=== PATIENT | male | born 1990 | race Hispanic/Latino ===

== ENCOUNTER 2020-10-06 19:15 | Observation (INO) | payer OTHER, SELFPAY ==
[2020-10-06] VITALS (7 sets, daily range): BP systolic 119–136; BP diastolic 73–81; PULSE 50–56; RESP 14–21; TEMP 37–37.3; O2SAT 99–100; BMI 23.5
[2020-10-06 19:33] LABS: Add Manual Diff / Slide Review NO; Basophils Absolute Auto 0 /uL (0-100); Basophils Percent Auto 0.2 % (0-2); Eosinophils Absolute Auto 0 /uL (0-450); Hematocrit 45.1 % (41-53); Lymphocytes Absolute Auto 1100 /uL (1100-4500); Lymphocytes Percent Auto 5.1 % (25-40); Mean Corpuscular HGB Conc 33.3 % (30-36); Mean Corpuscular Hemoglobin 30.6 PG (26-34); Mean Corpuscular Volume 91.9 fL (80-100); Monocytes Absolute Auto 600 /uL (0-900); Monocytes Percent Auto 2.7 % (3-14); Neutrophils Absolute Auto 19300 /uL (1500-7000); Platelet Count 184 X10^3/uL (150-400); Red Cell Distribution Width 12.9 % (11.6-14.8)
[2020-10-06 19:46] LABS: INR 1.2 (0.9-1.3); Prothrombin Time 13.5 SECONDS (10.1-12.7)
[2020-10-06 19:49] LABS: PTT Partial Thromboplastin Tim 30 SECONDS (26.4-36.2)
[2020-10-06 20:11] LABS: Alanine Aminotransferase 20 IU/L (<50); Albumin 4.8 g/dL (3.5-5.0); Albumin Globulin Ratio 1.6 (1.0-2.8); Alkaline Phosphatase 45 U/L (38-126); Aspartate Aminotransferase 29 IU/L (17-59); Bilirubin Total 0.9 mg/dL (0.2-1.3); Blood Urea Nitrogen 15 mg/dL (9-20); Calcium 9.6 mg/dL (8.4-10.2); Carbon Dioxide 25 mmol/L (22-32); Chloride 101 mmol/L (98-107); Estimated Glomerular Filt Rate > 60.0 mL/min (>60); Glucose 133 mg/dL (70-100); HEMOLYSIS < 15 (0-50); Lipase 74 U/L (23-300); Potassium 3.6 mmol/L (3.4-5.1); Sodium 136 mmol/L (137-145); Total Protein 7.8 g/dL (6.3-8.2)
--- NOTE | 2020-10-06 20:15 | DI.CT.S_ITS ---
PROCEDURE: CT ABDOMEN PELVIS W CON INDICATIONS: R/O appendicitis TECHNIQUE: After the administration of intravenous contrast, 5 mm thick sections acquired from the diaphragm to the symphysis. 5 mm coronal and sagittal reformats were acquired. For radiation dose reduction, the following was used: automated exposure control, adjustment of mA and/or kV according to patient size. COMPARISON: None. FINDINGS: Image quality: Excellent. ABDOMEN: Lung bases: There is mild dependent atelectasis bilaterally. Heart size is normal. Solid organs: There is a small nonspecific focal hypodensity in the right hepatic lobe which is too small to characterize but likely represents a cyst. The gallbladder appears within normal limits without calcified gallstones. Biliary system is non-dilated. Pancreas enhances normally. No peripancreatic fat stranding or fluid collections. No pancreatic duct dilatation. The spleen is normal in size. No adrenal nodules. Kidneys demonstrate no hydronephrosis. Peritoneum and bowel: Bowel loops demonstrate normal wall thickness and caliber. The appendix is distended, measuring up to 1.0 cm with mild wall thickening and periappendiceal fat stranding consistent with acute appendicitis. No free fluid or air. No loculated fluid collections to suggest and abscess. There is colonic diverticulosis without acute diverticulitis. Nodes and vessels: No retroperitoneal or mesenteric adenopathy by size criteria. Aorta and inferior vena cava are normal in size. Miscellaneous: No ventral hernias. PELVIS: Genitourinary: Bladder wall thickness is normal. Miscellaneous: No inguinal hernias or adenopathy. Bones: No suspicious bony lesions. No vertebral body compression fractures. IMPRESSION: 1. Acute appendicitis without definite evidence of perforation. 2. Findings discussed with Dr. Biswas on 10/06/2020 at 8:57 p.m.. Dictated by: Maicol Sun M.D. on 10/06/2020 at 20:54 Approved by: Maicol Sun M.D. on 10/06/2020 at 21:01
--- NOTE | 2020-10-06 20:15 | ED.ABDPAIN ---
HPI - Abdominal Pain General Chief Complaint: Abdominal Pain Stated Complaint: stomach pains, N/V/D Time Seen by Provider: 10/06/20 20:10 Source: patient Mode of arrival: Ambulatory Limitations: no limitations History of Present Illness HPI narrative: The patient developed right lower quadrant pain about noon today. Pain is escalated. The pain does not radiate. He he has vomited, no diarrhea. Oral intake is decreased. He has no fever. He has no back pain. He has no genitalia pain, and no dysuria. He has no complaints of headache, sore throat, cough or dyspnea. He denies chronic illnesses. He is on no regular medications. He has no surgical history. Related Data Allergies Allergy/AdvReac Type Severity Reaction Status Date / Time acetaminophen [ACETAMINOPHEN] Allergy Intermediate Rash Verified 10/06/20 22:26 Review of Systems Constitutional Constitutional: Reports anorexia, Denies chills, Denies fever(s) and Denies headache(s) Eyes Eyes: Denies change in vision ENT Ears, Nose, Mouth, and Throat: Denies dizziness, Denies headache(s) and Denies sore throat Comments: No change in taste or smell. Cardiovascular Cardiovascular: Denies chest pain, Denies irregular heart rhythm, Denies lightheadedness and Denies dyspnea Respiratory Respiratory: Denies cough and Denies dyspnea Gastrointestinal Gastrointestinal: Reports as per HPI and Reports abdominal pain Genitourinary Genitourinary: Denies dysuria Genitourinary: Denies dysuria Comments: No genital pain Musculoskeletal Musculoskeletal: Denies back pain Integumentary/Breasts Skin/Breast: Denies rash Comments: No skin lesions Neurologic Neurologic: Denies dizziness and Denies headache(s) Psychiatric Psychiatric: Denies anxiety Patient History Medical History Healthy adult Surgical History No significant past surgical history Family History (Updated 10/06/20 @ 22:26 by Jules Geronimo MD) Mother Cancer Social History household members: spouse and children Smoking Status: Current some day smoker Smoking Status: Current some day smoker alcohol intake frequency: a few times a month Substance Use Type: does not use Exam Initial Vital Signs Initial Vital Signs: Vital Signs Temperature 99.2 F 10/06/20 19:18 Pulse Rate 56 L 10/06/20 19:18 Respiratory Rate 14 10/06/20 19:18 Blood Pressure 136/73 10/06/20 19:18 Pulse Oximetry 100 10/06/20 19:18 Const General: cooperative, well developed and acute distress Nutritional Appearance: well nourished Eyes Other: No icterus Resp Auscultation: clear to auscultation bilaterally Cardio Rate: regular rate Rhythm: regular rhythm Heart Sounds: S1 normal, S2 normal, no click, no gallops, no murmurs and no rubs Pulses: normal peripheral pulses GI Other: Focal tenderness in the right lower quadrant with guarding, no rebound. Positive heel tap. No distension. No masses. Normal bowel sounds. Back/Spine/Pelvis Back: No CVA tenderness Skin General: no rashes or lesions noted and No jaundice Neuro General: patient alert, patient oriented x3, gait normal and no focal motor deficits Speech: speech normal Extrem General: no pedal edema and no calf tenderness Psych Appearance: grossly normal and well kempt Course Course Course Narrative: Clinical findings were concerning for acute appendicitis. CT was consistent with acute appendicitis. Surgery, Dr. Geronimo was consulted. The patient was started on Rocephin and Flagyl for appendicitis. He was evaluated in the ER by Dr. Geronimo. He will be managed with antibiotics this evening. Dr. Geronimo will give the patient the option to be managed with antibiotics only, he will re-evaluate the patient in the morning. The patient is admitted. Orders Ordered: ED Orders 10/06/20 19:22 EKG-12 Lead Stat 10/06/20 19:25 Complete Blood Count AUTO DIFF Stat Comprehensive Metabolic Panel Stat Lipase Stat Partial Thromboplastin Time Stat Prothrombin Time INR Stat 10/06/20 20:15 CT abdomen pelvis w con Stat 10/06/20 21:00 COVID19 - ADMIT (SUPERVISING CHEF swab/PCR) Stat Enoxaparin Sodium (Enoxaparin 40 Mg/0.4 Ml Syringe) 40 mg SUBCUT NOW ONE Stop: 10/06/20 22:25 Gabapentin (Gabapentin 300 Mg Capsule) 300 mg PO BID CAITLIN Hydromorphone HCl (Hydromorphone 1 Mg Inj) 1 mg IV 2300 PRN PRN Reason: Pain, Moderate (4-6) Lactated Ringer's (Lactated Ringers) 1,000 mls @ 125 mls/hr IV CONT CAITLIN Metronidazole (Flagyl) 500 mg in 100 mls @ 100 mls/hr IV Q6HR CAITLIN Ceftriaxone Sodium/Dextrose (Rocephin) 1 gm in 50 mls @ 100 mls/hr IV Q12H CAITLIN Ketorolac Tromethamine (Ketorolac 30 Mg/Ml Vial) 30 mg IV Q6HR PRN PRN Reason: abdominal pain Stop: 10/11/20 22:15 Ondansetron HCl (Ondansetron 4 Mg/2 Ml Inj) 4 mg IV Q4HR PRN PRN Reason: Nausea And Vomiting Discontinued Medications Sodium Chloride (Normal Saline 0.9%) 1,000 mls @ 1,000 mls/hr IV BOLUS ONE Stop: 10/06/20 21:13 Last Infusion: 10/06/20 22:03 Dose: 300 mls/hr Documented by: Admin: 10/06/20 20:19 Dose: 1,000 mls/hr Documented by: ELOY Ceftriaxone Sodium/Dextrose (Rocephin) 1 gm in 50 mls @ 100 mls/hr IV NOW ONE Stop: 10/06/20 21:34 Last Infusion: 10/06/20 21:50 Dose: 0 mls/hr Documented by: Admin: 10/06/20 21:23 Dose: 100 mls/hr Documented by: ELOY Metronidazole (Flagyl) 500 mg in 100 mls @ 100 mls/hr IV NOW ONE Stop: 10/06/20 22:04 Last Infusion: 10/06/20 22:02 Dose: 100 mls/hr Documented by: Admin: 10/06/20 21:49 Dose: 100 mls/hr Documented by: ELOY Ketorolac Tromethamine (Ketorolac 60 Mg/2 Ml Vial) 15 mg IV NOW ONE Stop: 10/06/20 20:15 Last Admin: 10/06/20 20:18 Dose: 15 mg Documented by: ELOY Ondansetron HCl (Ondansetron 4 Mg/2 Ml Inj) 4 mg IV NOW ONE Stop: 10/06/20 20:15 Last Admin: 10/06/20 20:18 Dose: 4 mg Documented by: ELOY Vital Signs Vital signs: Vital Signs - 8 hr 10/06/20 19:18 10/06/20 20:15 10/06/20 20:33 Temperature 99.2 F Pulse Rate 56 L 56 L 51 L Respiratory Rate 14 17 18 Blood Pressure 136/73 Pulse Oximetry 100 99 10/06/20 21:00 10/06/20 21:03 10/06/20 21:30 Temperature 99.0 F Pulse Rate 55 L 51 L 50 L Respiratory Rate 21 20 16 Blood Pressure 120/73 119/73 Pulse Oximetry 100 100 99 MDM - Abdominal Pain Lab Data Result diagrams: 10/06/20 19:25 10/06/20 19:25 Labs: Lab Results 10/06/20 10/06/20 10/06/20 Range/Units 19:25 19:25 19:25 WBC 21.0 H (4.5-11.0) X10^3/uL RBC 4.90 (4.5-5.9) X10^6/uL Hgb 15.0 (13.5-17.5) g/dL Hct 45.1 (41-53) % MCV 91.9 (80-100) fL MCH 30.6 (26-34) PG MCHC 33.3 (30-36) % RDW 12.9 (11.6-14.8) % Plt Count 184 (150-400) X10^3/uL Neut % (Auto) 92.0 H (50-75) % Lymph % (Auto) 5.1 L (25-40) % [place] % (Auto) 2.7 L (3-14) % Eos % (Auto) 0.0 L (2-4) % Baso % (Auto) 0.2 (0-2) % Neut # (Auto) 96650 H (8300-8725) /uL Lymph # (Auto) 1100 (0588-7456) /uL [place] # (Auto) 600 (0-900) /uL Eos # (Auto) 0 (0-450) /uL Baso # (Auto) 0 (0-100) /uL PT 13.5 H (10.1-12.7) SECONDS INR 1.2 (0.9-1.3) APTT 30 (26.4-36.2) SECONDS Sodium 136 L (137-145) mmol/L Potassium 3.6 (3.4-5.1) mmol/L Chloride 101 (98-107) mmol/L Carbon Dioxide 25 (22-32) mmol/L BUN 15 (9-20) mg/dL Creatinine 0.75 (0.66-1.25) mg/dL Estimated GFR > 60.0 (>60) mL/min BUN/Creatinine Ratio 20.0 (6-22) Glucose 133 H (70-100) mg/dL Calcium 9.6 (8.4-10.2) mg/dL Total Bilirubin 0.9 (0.2-1.3) mg/dL AST 29 (17-59) IU/L ALT 20 (<50) IU/L Alkaline Phosphatase 45 (38-126) U/L Total Protein 7.8 (6.3-8.2) g/dL Albumin 4.8 (3.5-5.0) g/dL Globulin 3.0 (1.7-4.1) g/dL Albumin/Globulin Ratio 1.6 (1.0-2.8) Lipase 74 (23-300) U/L SARS-CoV-2 (PCR) (Negative) 10/06/20 Range/Units 21:00 WBC (4.5-11.0) X10^3/uL RBC (4.5-5.9) X10^6/uL Hgb (13.5-17.5) g/dL Hct (41-53) % MCV (80-100) fL MCH (26-34) PG MCHC (30-36) % RDW (11.6-14.8) % Plt Count (150-400) X10^3/uL Neut % (Auto) (50-75) % Lymph % (Auto) (25-40) % [place] % (Auto) (3-14) % Eos % (Auto) (2-4) % Baso % (Auto) (0-2) % Neut # (Auto) (3116-2187) /uL Lymph # (Auto) (2966-1034) /uL [place] # (Auto) (0-900) /uL Eos # (Auto) (0-450) /uL Baso # (Auto) (0-100) /uL PT (10.1-12.7) SECONDS INR (0.9-1.3) APTT (26.4-36.2) SECONDS Sodium (137-145) mmol/L Potassium (3.4-5.1) mmol/L Chloride (98-107) mmol/L Carbon Dioxide (22-32) mmol/L BUN (9-20) mg/dL Creatinine (0.66-1.25) mg/dL Estimated GFR (>60) mL/min BUN/Creatinine Ratio (6-22) Glucose (70-100) mg/dL Calcium (8.4-10.2) mg/dL Total Bilirubin (0.2-1.3) mg/dL AST (17-59) IU/L ALT (<50) IU/L Alkaline Phosphatase (38-126) U/L Total Protein (6.3-8.2) g/dL Albumin (3.5-5.0) g/dL Globulin (1.7-4.1) g/dL Albumin/Globulin Ratio (1.0-2.8) Lipase (23-300) U/L SARS-CoV-2 (PCR) Negative (Negative) Imaging Data CT scan - abdomen/pelvis: Radiologist's Impression: Acute appendicitis Critical Care Time Critical Care Time Critical Care Time: Yes Total Critical Care Time: 40 Attestation: Time includes initial assessment patient, review of lab and radiology data, and informing the patient of the clinical findings. Time included consultation with the admitting physician. Discharge Plan Departure Patient Disposition: Admitted as Observation Clinical Impression: Acute appendicitis Admit Date/Time: 10/06/20 21:49 Admit Provider: Jules Geronimo
[2020-10-06] MEDS: KETOROLAC 60 MG/2 ML VIAL 15 MG IV (20:18)
[2020-10-06] MEDS: ONDANSETRON 4 MG/2 ML INJ IV (20:18)
[2020-10-06] MEDS: SODIUM CHLORIDE 0.9% 1,000 ML 1000 ML IV (20:19)
[2020-10-06] MEDS: CEFTRIAXONE 1 GM/50 ML FROZ.PIGGY IV (21:23)
[2020-10-06] MEDS: metroNIDAZOLE 500 MG/100 ML PIGGYBACK 100 MG IV (21:49)
[2020-10-06 22:00] LABS: COVID19 - ADMIT (NP swab/PCR) Negative (Negative)
--- NOTE | 2020-10-06 22:22 | PM.HP.1 ---
History of Present Illness History of Present Illness Date Patient Seen: 10/06/20 Time Patient Seen: 22:23 Chief complaint: stomach pains, N/V/D Narrative: The patient is a gentleman who developed right mid abdominal pain at about 1:00 this afternoon. He has never had pain like this before. The pain is accompanied by nausea and vomiting. Last p.o. intake was around 6:00 p.m. when he drank Gatorade. The pain is made worse with movement. It is particularly severe with palpation. Patient History Medical History Healthy adult Surgical History No significant past surgical history Family & Social History Family History (Updated 10/06/20 @ 22:26 by Jules Geronimo MD) Mother Cancer Safety & Behavioral: Feels Safe in Current Yes Environment Been Physically Hurt or No Threatened By a Person Tobacco & Substance use: Smoking Status Current some day smoker alcohol intake frequency a few times a month Substance Use Type does not use Meds Home Medications and Allergies Allergies Allergy/AdvReac Type Severity Reaction Status Date / Time acetaminophen [ACETAMINOPHEN] Allergy Intermediate Rash Verified 10/06/20 22:26 Review of Systems Review of Systems Narrative: Patient denies double vision pain is eyes earache sore throats tooth aches trouble swallowing. Denies cough cold or asthma. Denies chest pain, murmurs, problems with his heart. Denies black or bloody bowel movements. Is denies dysuria hematuria or kidney stones. Denies seizures or blackouts. No unusual bruising or bleeding. No chronic muscle or joint pain. No new skin lesions or rashes. No anxiety or depression. Exam Vital Signs (past 8 hours): - 10/06/20 19:18 10/06/20 20:15 10/06/20 20:33 Temperature 99.2 F Pulse Rate 56 L 56 L 51 L Respiratory Rate 14 17 18 Blood Pressure 136/73 Pulse Oximetry 100 99 10/06/20 21:00 10/06/20 21:03 10/06/20 21:30 Temperature 99.0 F Pulse Rate 55 L 51 L 50 L Respiratory Rate 21 20 16 Blood Pressure 120/73 119/73 Pulse Oximetry 100 100 99 Oxygen Delivery Method Room Air Narrative Exam Narrative: Cooperative in no distress except with movement. He went is a little. Eyes nonicteric. Pupils equal round reactive to light. Conjunctiva pink. Oral mucosa is pink moist no open lesions. Teeth are intact. There are no nodes in the neck supraclavicular areas. Trachea is midline mobile. Lungs are clear to auscultation. No rales or rhonchi. Equal percussion. Heart regular rate and rhythm without murmur gallop. No heave lift or thrill. Abdomen is scaphoid and soft. He has voluntary guarding in the right lower quadrant with tenderness with mild to moderate palpation. The remainder of his abdomen is soft and nontender. There is no referred pain. Extremities without cyanosis clubbing or edema. Normal adult hair pattern. No open skin lesions appreciated. Alert and oriented x3. Speech rate and content are appropriate. Affect is appropriate. Objective Imaging CT scan - abdomen: My impression: Findings consistent with acute appendicitis. Radiologist's impression: See report. Thickened appendix. Fat stranding. Consistent with acute appendicitis. Labs Result Diagrams: 10/06/20 19:25 10/06/20 19:25 Labs: Laboratory Results - last 24 hr 10/06/20 10/06/20 10/06/20 19:25 19:25 19:25 WBC 21.0 H RBC 4.90 Hgb 15.0 Hct 45.1 MCV 91.9 MCH 30.6 MCHC 33.3 RDW 12.9 Plt Count 184 Neut % (Auto) 92.0 H Lymph % (Auto) 5.1 L [place] % (Auto) 2.7 L Eos % (Auto) 0.0 L Baso % (Auto) 0.2 Neut # (Auto) 67363 H Lymph # (Auto) 1100 [place] # (Auto) 600 Eos # (Auto) 0 Baso # (Auto) 0 PT 13.5 H INR 1.2 APTT 30 Sodium 136 L Potassium 3.6 Chloride 101 Carbon Dioxide 25 BUN 15 Creatinine 0.75 Estimated GFR > 60.0 BUN/Creatinine Ratio 20.0 Glucose 133 H Calcium 9.6 Total Bilirubin 0.9 AST 29 ALT 20 Alkaline Phosphatase 45 Total Protein 7.8 Albumin 4.8 Globulin 3.0 Albumin/Globulin Ratio 1.6 Lipase 74 SARS-CoV-2 (PCR) 10/06/20 21:00 WBC RBC Hgb Hct MCV MCH MCHC RDW Plt Count Neut % (Auto) Lymph % (Auto) [place] % (Auto) Eos % (Auto) Baso % (Auto) Neut # (Auto) Lymph # (Auto) [place] # (Auto) Eos # (Auto) Baso # (Auto) PT INR APTT Sodium Potassium Chloride Carbon Dioxide BUN Creatinine Estimated GFR BUN/Creatinine Ratio Glucose Calcium Total Bilirubin AST ALT Alkaline Phosphatase Total Protein Albumin Globulin Albumin/Globulin Ratio Lipase SARS-CoV-2 (PCR) Negative Assessment & Plan Assessment & Plan narrative: The patient is a 30-year-old gentleman who was otherwise healthy who developed abdominal pain today and has an exam and CT findings consistent with acute appendicitis. His white blood cell count is markedly elevated at sometimes we see that in younger people. I have offered him non operative treatment with antibiotics versus a laparoscopic appendectomy. I have discussed the procedure and rationale and advantages and disadvantages of each method of care. He would like to attempt non operative treatment understanding there was a 30% failure rate overall and that it may progress to perforation which would prolong his day and increase the cost. He understands all this. He has received IV antibiotics in the emergency room. Will continue those on the floor and re-evaluate him in the morning. He understands that if he is feeling better we will probably proceed and discharge him on oral antibiotics and pain medicine. If he is not then we would plan to do an operation later that day. All questions were answered. Will keep him NPO for now. Will provide him 1 dose of narcotics for pain relief so he can get a good night's sleep. Toradol otherwise. DVT prophylaxis ordered. IV fluids. Repeat labs at 5:00 a.m.. Quality [facility] - Admit Advanced Care Plan / Current Medications Measures: #47 ? Advanced Care Plan Clinician documentation instruction: document at admission. [] I confirmed that the patient's Advance Care Plan is present, code status is documented, or surrogate decision maker is listed in the patient?s medical record. [SATISFIES [facility] PERFORMANCE] If Yes, Stop Here [] The patient?s Advance Care plan is not present because: (select) [[facility] PERFORMANCE EXCEPTION/EXCLUSION] [] I confirmed today that the patient does not wish or was not able to name a surrogate decision maker or provide an Advance Care Plan. [] Hospice care is currently being provided or has been provided this calendar year [] I did NOT confirm today the presence of an Advance Care Plan or surrogate decision maker documented within the patient's medical record. [DOES NOT SATISFY [employer] PERFORMANCE] #130 - Documentation of Current Medications in the Medical Record Clinician documentation instruction: use macro the first time you see a patient. [] I have utilized all available immediate resources to obtain, update, or review the patient?s current medications. [SATISFIES [employer] PERFORMANCE] If Yes, Stop Here [] The patient is not eligible for medication reconciliation; the patient is in an emergent medical situation where delaying treatment would jeopardize the patient?s health. [[facility] PERFORMANCE EXCEPTION/EXCLUSION] [] I did NOT confirm, update or review the patient's current list of medications today. [DOES NOT SATISFY [employer]IPS PERFORMANCE] MIPS - CL Central Venous Catheter Placement Measure: #76 ? Prevention of Central Venous Catheter (CVC) ? Related Bloodstream Infection Clinician documentation instruction: use macro every time you place a central line. [] All elements of Maximal Sterile Barrier Technique, including hand hygiene, skin prep, and sterile ultrasound technique (if used) were followed. [SATISFIES [employer]IPS PERFORMANCE] If Yes, Stop Here [] If ?No?, the medical reason all elements were NOT used for medical reason [] (ex. emergent condition). [] Maximal Sterile Barrier Technique was not followed, no reason provided [DOES NOT SATISFY MIPS PERFORMANCE] MIPS - DC Heart Failure Measures: #5 - Heart Failure (HF): Angiotensin-Converting Enzyme (JUAN DAVID) Inhibitor or Angiotensin Receptor Robert (ARB) Therapy for Left Ventricular Systolic Dysfunction (LVSD) and #8 - Heart Failure (HF): Beta-Robert Therapy for Left Ventricular Systolic Dysfunction (LVSD) Clinician documentation instruction: use macro at every CHF discharge. [] The patient has current or prior documentation of left ventricular ejection fraction (LVEF) less than 40%, or moderate or severely depressed left ventricular systolic function. Answer both: [SATISFIES MIPS PERFORMANCE] [] The patient was prescribed or already taking an Angiotensin-Converting Enzyme (JUAN DAVID) Inhibitor, or Angiotensin Receptor Robert (ARB). [] The patient was prescribed or already taking a beta-robert. If Yes to Both, Stop Here [] Patient not prescribed/taking: [MIPS PERFORMANCE EXCEPTION/EXCLUSION] [] JUAN DAVID or ARB for medical/patient/system reason(s) including [] (ex. allergy, intolerance, contraindication) [] Beta-robert for medical/patient/system reason(s) including [] (ex. allergy, intolerance, contraindication) [] Patient not prescribed/taking: [DOES NOT SATISFY MIPS PERFORMANCE] [] JUAN DAVID or ARB, no reason given [] Beta-robert, no reason given
--- NOTE | 2020-10-06 22:56 | PC.NURSE ---
Patient arrived from [facility] on a gurney at 22:22. Able to ambulate independently with IV pole to bathroom. Settled into bed VSS, afebrile. Patient with spouse at bedside. Reporting 5/10 pain. Admission assessment completed. Oriented to the room and unit routines.
[2020-10-06] MEDS: GABAPENTIN 300 MG CAPSULE PO (23:07)
[2020-10-06] MEDS: HYDROMORPHONE 1 MG INJ IV (23:07)
[2020-10-06] MEDS: LACTATED RINGERS 1,000 ML 125 ML IV (23:08)
[2020-10-07 00:10] VITALS: BP 113/60; PULSE 57; RESP 16; TEMP 36.8; O2SAT 98
--- NOTE | 2020-10-07 00:47 | PC.NURSE ---
Addendum entered by Neda Gibson R.N. 10/07/20 05:15: Patient states his pain is now 5/10 so medicated with Toradol. Up to bathroom and voided 400cc. Brushed teeth Original Note: 4054: patient is alert and oriented. Breath sounds CTA with RA sat of 98%. HRR but bradycardic at 57 bpm. Denies nausea. BT present and abdomen is soft but tender in RLQ. States pain is sharp but improved at 3/10 after receiving Dilaudid at 2307. Denies dysuria, frequency or urgency with urination. Independent with mobility. Wearing bilateral calf SCD's. Fall risk score is low. NPO; verbalizes understanding.
[2020-10-07] MEDS: metroNIDAZOLE 500 MG/100 ML PIGGYBACK 100 MG IV ×3 (03:07→14:56)
[2020-10-07] MEDS: KETOROLAC 30 MG/ML VIAL IV (05:06)
[2020-10-07 05:15] VITALS: BP 109/51; PULSE 94; RESP 16; TEMP 37; O2SAT 99
[2020-10-07 05:16] LABS: Add Manual Diff / Slide Review NO; Basophils Absolute Auto 0 /uL (0-100); Basophils Percent Auto 0.3 % (0-2); Eosinophils Absolute Auto 0 /uL (0-450); Eosinophils Percent Auto 0.1 % (2-4); Hematocrit 40.2 % (41-53); Hemoglobin 13.8 g/dL (13.5-17.5); Lymphocytes Absolute Auto 1800 /uL (1100-4500); Lymphocytes Percent Auto 13.9 % (25-40); Mean Corpuscular HGB Conc 34.2 % (30-36); Mean Corpuscular Hemoglobin 31.2 PG (26-34); Mean Corpuscular Volume 91.2 fL (80-100); Monocytes Absolute Auto 900 /uL (0-900); Monocytes Percent Auto 6.7 % (3-14); Neutrophils Absolute Auto 10100 /uL (1500-7000); Platelet Count 147 X10^3/uL (150-400); Red Blood Cell Count 4.41 X10^6/uL (4.5-5.9); White Blood Cell Count 12.8 X10^3/uL (4.5-11.0)
[2020-10-07 05:19] LABS: BUN Creatinine Ratio 14.5 (6-22); Blood Urea Nitrogen 12 mg/dL (9-20); Calcium 8.7 mg/dL (8.4-10.2); Carbon Dioxide 29 mmol/L (22-32); Chloride 104 mmol/L (98-107); Estimated Glomerular Filt Rate > 60.0 mL/min (>60); Glucose 94 mg/dL (70-100); HEMOLYSIS < 15 (0-50); Potassium 3.7 mmol/L (3.4-5.1); Sodium 138 mmol/L (137-145)
[2020-10-07] MEDS: CEFTRIAXONE 1 GM/50 ML FROZ.PIGGY IV (08:31)
[2020-10-07] MEDS: LACTATED RINGERS 1,000 ML 125 ML IV (08:31)
[2020-10-07 08:37] VITALS: BP 105/68; PULSE 46; RESP 14; TEMP 36.8; O2SAT 98
[2020-10-07] MEDS: GABAPENTIN 300 MG CAPSULE PO (09:34)
--- NOTE | 2020-10-07 12:21 | CM.IDA ---
Initial DCP Assessment Note Pt is a 30yo male, resident of [place], presents w/N/V/D and abd pain, found to have acute apendicitis, Dr Geronimo is attempting non operative management per patient's request, unless symptoms did not improve ,or worsen.. at which point patient would require lap appy. PCP: Florentino Gutierrez (retired) needs new PCP from [facility] Payer: Devan Met w/patient this morning, introduced role. Patient very pleasant but did not speak much, states he will have assistance at home if he needs it. No needs expected from DC planning team although will remain available in case this changes today. JEANETTE Crespo
[2020-10-07 12:32] VITALS: BP 110/66; PULSE 45; RESP 15; TEMP 36.5; O2SAT 99
--- NOTE | 2020-10-07 12:40 | PC.NURSE ---
Assess- Patient is Alert and oriented x3. He denies pain at this time and is visiting with his S.O. He has been tolerating his iv antibiotics well. Waiting to see the
[2020-10-07 15:55] VITALS: BP 108/66; PULSE 54; RESP 16; TEMP 36.9; O2SAT 99
--- NOTE | 2020-10-07 18:40 | PM.DS.1 ---
History of Present Illness History of Present Illness Chief complaint: stomach pains, N/V/D Narrative: The patient is a gentleman who developed right mid abdominal pain at about 1:00 this afternoon. He has never had pain like this before. The pain is accompanied by nausea and vomiting. Last p.o. intake was around 6:00 p.m. when he drank Gatorade. The pain is made worse with movement. It is particularly severe with palpation. Discharge Providers Provider Date of admission: 10/06/20 21:49 Discharge Date: 10/07/20 Primary care physician: Florentino Gutierrez MD Discharge provider: Jules Geronimo MD Summary Hospital Course Discharge Diagnosis: Acute appendicitis Hospital Course: Patient opted to undergo medical treatment rather than surgical treatment. He was begun on ceftriaxone and Flagyl. He markedly improved overnight. His white blood cell count came down to 14 from . His differential improved as well. He was discharged with localized tenderness that was markedly improved. He no longer had any voluntary guarding. Status at Discharge Cognitive/behavioral status at discharge: at baseline, oriented Functional status at discharge: independent ambulation Overall status at discharge: patient is progressing back to baseline Time Spent with Patient Time spent: Less than 30 minutes Exam Vital Signs (past 8 hours): - 10/07/20 12:32 10/07/20 15:55 Temperature 97.7 F 98.5 F Pulse Rate 45 L 54 L Respiratory Rate 15 16 Blood Pressure 110/66 108/66 Pulse Oximetry 99 99 Oxygen Delivery Method Room Air Oxygen Flow Rate 0 Narrative Exam Narrative: At abdomen is scaphoid soft. There is localized mild tenderness in the right lower quadrant. No voluntary guarding. The remainder of his abdomen is soft and nontender. Objective Labs Result Diagrams: 10/07/20 04:55 10/07/20 04:55 Labs: Laboratory Results - last 24 hr 10/06/20 10/06/20 10/06/20 19:25 19:25 19:25 WBC 21.0 H RBC 4.90 Hgb 15.0 Hct 45.1 MCV 91.9 MCH 30.6 MCHC 33.3 RDW 12.9 Plt Count 184 Neut % (Auto) 92.0 H Lymph % (Auto) 5.1 L [place] % (Auto) 2.7 L Eos % (Auto) 0.0 L Baso % (Auto) 0.2 Neut # (Auto) 26308 H Lymph # (Auto) 1100 [place] # (Auto) 600 Eos # (Auto) 0 Baso # (Auto) 0 PT 13.5 H INR 1.2 APTT 30 Sodium 136 L Potassium 3.6 Chloride 101 Carbon Dioxide 25 BUN 15 Creatinine 0.75 Estimated GFR > 60.0 BUN/Creatinine Ratio 20.0 Glucose 133 H Calcium 9.6 Total Bilirubin 0.9 AST 29 ALT 20 Alkaline Phosphatase 45 Total Protein 7.8 Albumin 4.8 Globulin 3.0 Albumin/Globulin Ratio 1.6 Lipase 74 SARS-CoV-2 (PCR) 10/06/20 10/07/20 10/07/20 21:00 04:55 04:55 WBC 12.8 H RBC 4.41 L Hgb 13.8 Hct 40.2 L MCV 91.2 MCH 31.2 MCHC 34.2 RDW 13.0 Plt Count 147 L Neut % (Auto) 79.0 H Lymph % (Auto) 13.9 L [place] % (Auto) 6.7 Eos % (Auto) 0.1 L Baso % (Auto) 0.3 Neut # (Auto) 25494 H Lymph # (Auto) 1800 [place] # (Auto) 900 Eos # (Auto) 0 Baso # (Auto) 0 PT INR APTT Sodium 138 Potassium 3.7 Chloride 104 Carbon Dioxide 29 BUN 12 Creatinine 0.83 Estimated GFR > 60.0 BUN/Creatinine Ratio 14.5 Glucose 94 Calcium 8.7 Total Bilirubin AST ALT Alkaline Phosphatase Total Protein Albumin Globulin Albumin/Globulin Ratio Lipase SARS-CoV-2 (PCR) Negative [facility] Medical History Healthy adult Surgical History No significant past surgical history Family History (Updated 10/06/20 @ 22:26 by Jules Geronimo MD) Mother Cancer Social History household members: spouse and children Smoking Status: Current some day smoker alcohol intake: current Discharge Plan Discharge Plan Patient Disposition: Home Provider Discharge Comment: You were admitted with acute appendicitis. You chose to have treatment with antibiotics rather than surgery. Thus far it seems to have been successful and I would anticipate that that should continue. However, it is very important if you develop a fever, soaking night sweats or just feeling worse with increasing pain that you contact us. The antibiotics I am prescribing will probably cause you to be nauseated and queasy. Do not use any alcohol with them as it will cause you to vomit. If you are having a problem that you think is due to the antibiotics please call us. If you stop them for any reason we need to know that. Please call my office on Saturday after 9:00 a.m. and make an appointment to see me on . Tell my staff that I had treated to in the hospital and specifically wanted to see you on that day. Discharge orders & Medications Prescriptions: New ibuprofen 600 mg tablet 600 mg PO QID PRN (Reason: pain) Qty: 30 RF: 0 ciprofloxacin HCl 500 mg tablet 500 mg PO BID Qty: 14 RF: 0 metronidazole 500 mg tablet 500 mg PO TID Qty: 22 RF: 0 Follow up/Referrals: Florentino Gutierrez MD [Primary Care Provider] - Jules Geronimo MD [Physician] - 1 Week (Call my office and make an appointment to see me this coming . If you need to reach a doctor please call our office. If it is after hours please listen to the message. You will be instructed how to page the doctor on-call for our practice. Have a pen and paper ready to write the number down.) Diet/Activity/Treatments Diet: Clear Liquid Diet comment: Slowly advanced your diet to regular food over the next few days Activity: Avoid vigorous activity. You may walk. If you do not feel able do not return to work on Saturday and I will be happy to provide do with the note when I see you in the office on Skin/Wound/Dressing Care Report to your healthcare provider any signs of infection, such as:: chills, fever, night sweats and increased pain Discharge Data Primary Care Provider: Florentino Gutierrez Attending Provider: Jules Geronimo Quality VTE Deep Vein Thrombosis/Pulmonary Embolism Present on Admission: No MIPS - Admit Advanced Care Plan / Current Medications Measures: #47 ? Advanced Care Plan Clinician documentation instruction: document at admission. [] I confirmed that the patient's Advance Care Plan is present, code status is documented, or surrogate decision maker is listed in the patient?s medical record. [SATISFIES MIPS PERFORMANCE] If Yes, Stop Here [] The patient?s Advance Care plan is not present because: (select) [MIPS PERFORMANCE EXCEPTION/EXCLUSION] [] I confirmed today that the patient does not wish or was not able to name a surrogate decision maker or provide an Advance Care Plan. [] Hospice care is currently being provided or has been provided this calendar year [] I did NOT confirm today the presence of an Advance Care Plan or surrogate decision maker documented within the patient's medical record. [DOES NOT SATISFY MIPS PERFORMANCE] #130 - Documentation of Current Medications in the Medical Record Clinician documentation instruction: use macro the first time you see a patient. [] I have utilized all available immediate resources to obtain, update, or review the patient?s current medications. [SATISFIES MIPS PERFORMANCE] If Yes, Stop Here [] The patient is not eligible for medication reconciliation; the patient is in an emergent medical situation where delaying treatment would jeopardize the patient?s health. [MIPS PERFORMANCE EXCEPTION/EXCLUSION] [] I did NOT confirm, update or review the patient's current list of medications today. [DOES NOT SATISFY MIPS PERFORMANCE] MIPS - CL Central Venous Catheter Placement Measure: #76 ? Prevention of Central Venous Catheter (CVC) ? Related Bloodstream Infection Clinician documentation instruction: use macro every time you place a central line. [] All elements of Maximal Sterile Barrier Technique, including hand hygiene, skin prep, and sterile ultrasound technique (if used) were followed. [SATISFIES MIPS PERFORMANCE] If Yes, Stop Here [] If ?No?, the medical reason all elements were NOT used for medical reason [] (ex. emergent condition). [] Maximal Sterile Barrier Technique was not followed, no reason provided [DOES NOT SATISFY MIPS PERFORMANCE] MIPS - DC Heart Failure Measures: #5 - Heart Failure (HF): Angiotensin-Converting Enzyme (JUAN DAVID) Inhibitor or Angiotensin Receptor Ronnie (ARB) Therapy for Left Ventricular Systolic Dysfunction (LVSD) and #8 - Heart Failure (HF): Beta-Ronnie Therapy for Left Ventricular Systolic Dysfunction (LVSD) Clinician documentation instruction: use macro at every CHF discharge. [] The patient has current or prior documentation of left ventricular ejection fraction (LVEF) less than 40%, or moderate or severely depressed left ventricular systolic function. Answer both: [SATISFIES MIPS PERFORMANCE] [] The patient was prescribed or already taking an Angiotensin-Converting Enzyme (UJAN DAVID) Inhibitor, or Angiotensin Receptor Ronnie (ARB). [] The patient was prescribed or already taking a beta-ronnie. If Yes to Both, Stop Here [] Patient not prescribed/taking: [MIPS PERFORMANCE EXCEPTION/EXCLUSION] [] JUAN DAVID or ARB for medical/patient/system reason(s) including [] (ex. allergy, intolerance, contraindication) [] Beta-ronnie for medical/patient/system reason(s) including [] (ex. allergy, intolerance, contraindication) [] Patient not prescribed/taking: [DOES NOT SATISFY MIPS PERFORMANCE] [] JUAN DAVID or ARB, no reason given [] Beta-ronnie, no reason given
--- NOTE | 2020-10-07 19:51 | PC.NURSE ---
Patient received discharge orders this evening after assessed by MD Geronimo. VSS, afebrile, reports pain very minimal 0-2/10 this evening. Tolerating clears well. Reviewed discharge instructions, medications and follow up instructions with patient and spouse at bedside. Patient verbalized understanding, and ambulated out of hospital at 1952 escorted by BUSINESS DEVELOPMENT SALES EXECUTIVE to private vehicle. 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
== END 2020-10-07 19:54 | disposition home or self-care (01) ==
LOC: ED 20:10 → AC 21:50
PROVIDERS: Admitting Provider Specialist; Emergency Provider Emergency Medicine; Family Provider Family Medicine; PCP Family Medicine; Visit Provider Specialist
DX: K35.80 Unspecified acute appendicitis (principal); F17.210 Nicotine dependence, cigarettes, uncomplicated; Z20.822 Contact with and (suspected) exposure to COVID-19
CPT/HCPCS: 36415; 74177; 80048; 80053; 83690; 85025; 85610; 85730; 87635; 93005; 93010; 96365; 96366; 96367; 96375; 96376; 99217; 99219; 99284; 99291; G0378; J1170; J1885; J2405; Q9967

== ENCOUNTER 2022-02-11 17:00 | Emergency (ER) | payer OTHER, SELFPAY ==
[2020-10-06 22:01] VITALS: BMI 23.5
[2022-02-11 17:10] VITALS: BP 131/65; PULSE 57; RESP 14; TEMP 36.9; O2SAT 99; BMI 23.5
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
[2022-02-11] MEDS: IBUPROFEN 400 MG TABLET 800 MG PO (18:14)
--- NOTE | 2022-02-11 18:27 | PC.NURSE ---
patient declined crutches. provider aware and no new orders at this time.
== END 2022-02-11 18:30 | disposition home or self-care (01) ==
PROVIDERS: Emergency Provider Emergency Medicine; Family Provider Family Medicine; PCP Family Medicine
DX: S80.01XA Contusion of right knee, initial encounter (principal); V19.9XXA Pedal cyclist (driver) (passenger) injured in unspecified traffic accident, initial encounter
CPT/HCPCS: 73562; 99283

== ENCOUNTER 2024-08-16 11:11 | Emergency (ER) | payer OTHER, SELFPAY ==
[2020-10-06 22:01] VITALS: BMI 23.5
[2024-08-16 11:20] VITALS: BP 113/79; PULSE 72; RESP 16; TEMP 36.8; O2SAT 100; BMI 24.3
--- NOTE | 2024-08-16 11:28 | DI.RAD.S_ITS ---
PROCEDURE: XR FOOT RT MIN 3V INDICATIONS: injury, pain TECHNIQUE: 3 views of the foot were acquired. COMPARISON: None. FINDINGS: Bones: No fractures or dislocations. No suspicious bony lesions. Soft tissues: No tibiotalar joint effusion. Achilles tendon appears normal. IMPRESSION: No displaced fractures are seen on these plain films. If there is focal tenderness, or other clinical concern for a fracture not seen on these images in this patient with a given history of trauma, please consider a dedicated CT or a short-term followup plain film series (in 1-2 weeks) for further evaluation. Dictated by: Hardik Vicente M.D. on 08/16/2024 at 10:56 Approved by: Hardik Vicente M.D. on 08/16/2024 at 10:56
--- NOTE | 2024-08-16 12:13 | ED.LOWEXIN ---
HPI - Extremity Injury (Lower) <Miriam Fortune PA-C - Last Filed: 08/16/24 12:57> General Chief Complaint: Extremity Injury, Lower Stated Complaint: RT FOOT INJURY, THINKS ITS BROKEN Time Seen by Provider: 08/16/24 11:44 Source: patient Mode of arrival: Wheelchair History of Present Illness HPI Narrative: Mr. aVlera is a pleasant 34-year-old male nose no reported past medical history presents to emergency department for right foot pain after an injury that occurred yesterday. Patient states he was walking down a step when he accidentally missed the last step somewhat rolling his right ankle and injuring the top of his right foot. He has had persistent pain in the top of his right foot since last night and the pain is exacerbated by weight-bearing. There is some bruising noted on the top of his right foot. He denies ankle pain, knee pain, any other pain from the injury. He has taken a leave proximally 2 hours prior to arrival which not improve the pain. He is accompanied by his . Related Data Previous Rx's Medication Instructions Recorded ciprofloxacin HCl 500 mg tablet 500 mg PO BID Acute appendicitis 10/07/20 #14 tabs ibuprofen 600 mg tablet 600 mg PO QID PRN pain #30 tabs 10/07/20 metronidazole 500 mg tablet 500 mg PO TID Acute appendicitis 10/07/20 #22 tabs Allergies Allergy/AdvReac Type Severity Reaction Status Date / Time acetaminophen [ACETAMINOPHEN] Allergy Intermediate Rash Verified 08/16/24 11:20 Review of Systems <Miriam Fortune PA-C - Last Filed: 08/16/24 12:57> Review of Systems ROS Unobtainable: All systems reviewed & are unremarkable except as noted in HPI and below Patient History <Miriam Fortune PA-C - Last Filed: 08/16/24 12:57> Medical History Healthy adult Surgical History No significant past surgical history Family History Mother Cancer Social History household members: spouse and children Smoking Status: Current some day smoker alcohol intake: current Smoking Status: Current some day smoker tobacco type: cigarettes alcohol intake frequency: a few times a week Exam <Miriam Fortune PA-C - Last Filed: 08/16/24 12:57> Narrative Exam Narrative: GENERAL: 34 year old patient appears stated age. Well-developed patient, in no acute distress. CARDIOVASCULAR: Regular rate RESPIRATORY: ?Nonlabored respirations. ?Speaking in clear, full sentences. EXTREMITIES: No tenderness to palpation of right medial or lateral malleolus. No ankle swelling. There is very faint ecchymosis on the dorsal aspect of the right foot. Patient has nonfocal tenderness to palpation of the right dorsal midfoot. No heel or 5th metatarsal tenderness. No erythema or increased warmth. Brisk capillary refill on the phalanxes and strong DP and PT pulses bilaterally. No tenderness to palpation of remainder of appendicular skeleton. NEURO: AOx3. ?Clear speech. ?Moves all 4 extremities appropriately. SKIN: No rash or erythema of visible areas, faint ecchymosis on right dorsal foot. Initial Vital Signs Initial Vital Signs: Vital Signs Temperature 98.2 F 08/16/24 11:20 Pulse Rate 72 08/16/24 11:20 Respiratory Rate 16 08/16/24 11:20 Blood Pressure 113/79 08/16/24 11:20 Pulse Oximetry 100 08/16/24 11:20 Oxygen Delivery Method Room Air 08/16/24 11:20 <Katie Sevilla MD - Last Filed: 08/16/24 13:16> Initial Vital Signs Initial Vital Signs: Vital Signs Temperature 98.2 F 08/16/24 11:20 Pulse Rate 72 08/16/24 11:20 Respiratory Rate 16 08/16/24 11:20 Blood Pressure 113/79 08/16/24 11:20 Pulse Oximetry 100 08/16/24 11:20 Oxygen Delivery Method Room Air 08/16/24 11:20 Course <Miriam Fortune PA-C - Last Filed: 08/16/24 12:57> Orders Ordered: ED Orders 08/16/24 11:28 XR foot RT min 3V Stat Discontinued Medications Oxycodone HCl (Oxycodone Ir 5 Mg Tablet) 5 mg PO NOW ONE Stop: 08/16/24 12:24 Last Admin: 08/16/24 12:53 Dose: 5 mg Documented By: SB Vital Signs Vital signs: Vital Signs - 8 hr 08/16/24 11:20 Temperature 98.2 F Pulse Rate 72 Respiratory Rate 16 Blood Pressure 113/79 Pulse Oximetry 100 Oxygen Delivery Method Room Air <Katie Sevilla MD - Last Filed: 08/16/24 13:16> Orders Ordered: ED Orders 08/16/24 11:28 XR foot RT min 3V Stat Discontinued Medications Oxycodone HCl (Oxycodone Ir 5 Mg Tablet) 5 mg PO NOW ONE Stop: 08/16/24 12:24 Last Admin: 08/16/24 12:53 Dose: 5 mg Documented By: SB Vital Signs Vital signs: Vital Signs - 8 hr 08/16/24 11:20 Temperature 98.2 F Pulse Rate 72 Respiratory Rate 16 Blood Pressure 113/79 Pulse Oximetry 100 Oxygen Delivery Method Room Air MDM - Extremity Injury (Lower) <Miriam Fortune PA-C - Last Filed: 08/16/24 12:57> Medical Records Attestation: I reviewed the patient's medical records. Imaging Data Right Foot X-Ray: Radiologist's Impression: PROCEDURE: XR FOOT RT MIN 3V INDICATIONS: injury, pain TECHNIQUE: 3 views of the foot were acquired. COMPARISON: None. FINDINGS: Bones: No fractures or dislocations. No suspicious bony lesions. Soft tissues: No tibiotalar joint effusion. Achilles tendon appears normal. IMPRESSION: No displaced fractures are seen on these plain films. If there is focal tenderness, or other clinical concern for a fracture not seen on these images in this patient with a given history of trauma, please consider a dedicated CT or a short-term followup plain film series (in 1-2 weeks) for further evaluation. MDM Narrative Medical decision making narrative: 34-year-old male nose no reported past medical history presents to emergency department for right foot pain after an injury that occurred yesterday. He is accompanied by his . He is pain with weight-bearing on the right foot. He took naproxen 2 hours ago. Differential diagnosis includes but is not limited to right foot fracture, contusion, sprain, strain, ligament injury, gout, etc. On exam the patient is in no acute distress, all vital signs within normal limits, right foot is neurovascularly intact. He does have generalized tenderness to palpation of right dorsal midfoot with some faint bruising. Right foot x-ray was obtained in triage. Patient has already taken naproxen, is allergic to acetaminophen, we will treat severe pain at this time with 1 time dose of oxycodone. His can drive him home. X-ray of right foot reveals no acute fractures or bony abnormalities. Suspect contusion versus sprain. However I did have extensive discussion with the patient his that he should follow up with the orthopedic doctor in 1 week if pain does not improve for repeat imaging and further evaluation. In the meantime he was placed into a right foot postop shoe, Tobi wrap, crutches. Recommended rice therapy and ibuprofen/naproxen for pain. Discussed ED return precautions. Patient his verbalized understanding of all information agreeable to the plan. He is stable for discharge home. Discharge Plan Departure Patient Disposition: Home Clinical Impression: Contusion of foot, right Qualifiers: Encounter type: initial encounter Qualified Code(s): S90.31XA - Contusion of right foot, initial encounter Right foot sprain Qualifiers: Encounter type: initial encounter Qualified Code(s): S93.601A - Unspecified sprain of right foot, initial encounter Instructions: DI for Foot Pain Activity Restrictions/Additional Instructions: Dear Mr. Valera, Thank you for coming to the emergency department today. You were evaluated for right foot pain and your x-ray did not show any fractures or breaks at this time. X-rays can not tell us about soft tissue injuries and can sometimes miss small subtle fracture so it is very important to follow up with the orthopedic doctor for further evaluation if your symptoms do not improve within the next week. Please continue to use the crutches, postoperative shoe, Tobi wrap as needed. You may call to schedule an appointment with [facility], Dr. Melton, for further evaluation. They have an office in [facility]. [phone]. Please use RICE therapy for your pain in addition to ibuprofen/acetaminophen. Rest the painful area. Ice the area of pain/swelling for at least 15 minutes, 4x a day. Compress the area of swelling using a brace, wrap, or splint if applied. Elevate the painful or swollen extremity by supporting it above the level of the heart with pillows when sitting or laying. Please take Ibuprofen (Motrin/Advil) for pain. These are available over the counter. You may take Ibuprofen 600 mg every 8 hours with food for pain. Do not drink alcohol with either of these medications. Please follow up with your primary care doctor within the next 2-3 days for ER follow-up. (If you do not have a PCP you can call [phone]. ?to schedule an appointment with an [facility] Primary Care Provider) IF YOU DEVELOP ANY NEW OR WORSENING SYMPTOMS, RETURN TO THE ER! Please read the attached instructions, they highlight more specific treatments and interventions for you at home. Thank you for letting me participate in your care, Miriam Fortune PA-C Prescriptions: No Action ibuprofen 600 mg tablet 600 mg PO QID PRN (Reason: pain) Qty: 30 0RF ciprofloxacin HCl 500 mg tablet 500 mg PO BID Qty: 14 0RF Rx Instructions: Start medication this evening metronidazole 500 mg tablet 500 mg PO TID Qty: 22 0RF Rx Instructions: Start medication this evening Referrals: Román Zelaya MD [Primary Care Provider] - Stand Alone Forms: Patient Portal/API/Survey ED Sign-out <Katie Sevilla MD - Last Filed: 08/16/24 13:16> Cosign ED Attending [place] Attestation: I did not see this patient. I was available all times for consultation.
[2024-08-16] MEDS: OXYCODONE IR 5 MG TABLET PO (12:53)
== END 2024-08-16 13:00 | disposition home or self-care (01) ==
PROVIDERS: Emergency Provider Physician Assistant; Family Provider Family Medicine; PCP Family Medicine
DX: S90.31XA Contusion of right foot, initial encounter (principal); S93.601A Unspecified sprain of right foot, initial encounter; X50.1XXA Overexertion from prolonged static or awkward postures, initial encounter
CPT/HCPCS: 73630; 99283; 99284

== ENCOUNTER → 2024-09-14 08:18 | Outpatient (CLI) | payer OTHER, SELFPAY ==
[2020-10-06 22:01] VITALS: BMI 23.5
--- NOTE | 2024-09-14 08:20 | DI.CT.S_ITS ---
PROCEDURE: CT LE RT WO CON INDICATIONS: lisfranc injury TECHNIQUE: Noncontrast 1-1.5 mm axial sections acquired from above the tibiotalar joint to the bottom of the calcaneus, with coronal and sagittal reformats. COMPARISON: [facility], CR, XR FOOT 3 VIEWS WEIGHT BEARING RIGHT, 08/25/2024, 10:52. [facility], CR, XR FOOT RT MIN 3V, 08/16/2024, 11:34. [facility], CR, XR KNEE RT 3V, 02/11/2022, 17:20. FINDINGS: Image quality: Excellent. Bones: Acute, minimally displaced an obliquely oriented fractures of the 2nd-4th metatarsal bases (4/135; 2/85-100). Acute, minimally displaced avulsion fracture at the dorsal tip of the lateral cuneiform (4/149). Acute, minimally displaced avulsion fracture at the dorsal-lateral tip of the medial cuneiform (4/131). Punctate fracture fragments at the Lisfranc interval (/; 4/130). 0.2 cm lateral offset of the distal 2nd metatarsal base fracture fragment respect to the proximal fracture fragment (/84). Joints: The joint spaces are otherwise preserved. Pes cavus alignment . Muscles: Overall muscle bulk is preserved. Tendons: The flexor and extensor tendon contours are preserved. Vessels: No aneurysmal dilatation of the posterior tibial and dorsalis pedis arteries. Other soft tissues: Minimal plantar calcaneal enthesopathy. IMPRESSION: Subacute Lisfranc injury involving the 2nd-4th metatarsal bases and the cuneiforms. No significant dislocation or divergence at this time. Dictated by: Gabriel Mckeon M.D. on 09/14/2024 at 17:40 Approved by: Gabriel Mckeon M.D. on 09/14/2024 at 17:58
== END ==
PROVIDERS: Family Provider Family Medicine; PCP Family Medicine; Referring Provider Physician Assistant; Visit Provider Physician Assistant
DX: S93.621A Sprain of tarsometatarsal ligament of right foot, initial encounter (principal); S92.324A Nondisplaced fracture of second metatarsal bone, right foot, initial encounter for closed fracture; S92.334A Nondisplaced fracture of third metatarsal bone, right foot, initial encounter for closed fracture; S92.344A Nondisplaced fracture of fourth metatarsal bone, right foot, initial encounter for closed fracture; S92.224A Nondisplaced fracture of lateral cuneiform of right foot, initial encounter for closed fracture; S92.244A Nondisplaced fracture of medial cuneiform of right foot, initial encounter for closed fracture; X58.XXXA Exposure to other specified factors, initial encounter
CPT/HCPCS: 73700